=== PATIENT | female | born 1975 ===

== ENCOUNTER 2021-01-27 06:49 | Emergency (ER) | payer BC ==
[2021-01-27 07:45] LABS: Basophils # (Auto) 0.1 K/mm3 (0.0-0.1); Basophils % (Auto) 0.5 % (0.0-1.8); Eosinophils % (Auto) 0.2 % (0.0-4.3); Hematocrit 30.1 % (30.3-42.9); Hemoglobin 9.3 gm/dl (10.1-14.3); Lymphocytes # (Auto) 2.6 K/mm3 (1.2-5.4); Lymphocytes % (Auto) 21.7 % (13.4-35.0); Mean Corpuscular HGB Conc 31 % (30-34); Monocytes # (Auto) 0.9 K/mm3 (0.0-0.8); Monocytes % (Auto) 7.8 % (0.0-7.3); Platelet Count 404 K/mm3 (140-440); Red Blood Count 4.53 M/mm3 (3.65-5.03); Red Cell Distribution Width 18.8 % (13.2-15.2)
[2021-01-27 08:10] LABS: Alanine Aminotransferase 8 units/L (7-56); Albumin 4.2 g/dL (3.9-5); BUN/Creatinine Ratio 11; Blood Urea Nitrogen 10 mg/dL (7-17); Calcium 9.5 mg/dL (8.4-10.2); Hemolysis Index 3
[2021-01-27 08:14] LABS: Mean Corpuscular Volume 67 fl (79-97)
[2021-01-27] MEDS ORDERED: MORPHINE 2 MG/1 ML INJ IV ONE ×2 (08:18→09:14)
[2021-01-27] MEDS ORDERED: ONDANSETRON 4 MG/2 ML INJ IV ONE (08:18)
--- NOTE | 2021-01-27 08:48 | Emergency Department Report ---
ED Abdominal Pain HPI - General Chief Complaint: Abdominal Pain Stated Complaint: ABD PAIN/POST SURGERY Time Seen by Provider: 01/27/21 07:41 Source: patient, family Mode of arrival: Wheelchair Limitations: No Limitations - History of Present Illness Initial Comments: 45-year-old female, history of fibroids, presents to ED with abdominal pain and vomiting. Patient states she underwent uterine fibroid embolization [address] Larkin. Patient states since then she has been having lower abdominal pain, nausea and vomiting. States she is unable to keep anything down. She denies any fever. Patient states she was prescribed ibuprofen for pain but has been unable to take it due to her vomiting. MD Complaint: abdominal pain -: days(s) (3) Location: suprapubic Radiation: none Migration to: no migration Severity: moderate Severity scale (0 -10): 10 Quality: cramping Consistency: constant Improves With: nothing Worsens With: nothing Context: recent surgery/procedure Associated Symptoms: nausea, vomiting. denies: fever - Related Data Previous Rx's Medication Instructions Recorded Last Taken Type Ondansetron [Zofran Odt] 4 mg PO Q8HR PRN #20 tab.rapdis 01/27/21 Unknown Rx Sulfamethoxazole/Trimethoprim 1 each PO BID 3 Days #6 tablet 01/27/21 Unknown Rx [Bactrim DS TAB] traMADoL [Ultram] 50 mg PO Q6HR PRN #7 tablet 01/27/21 Unknown Rx Allergies Allergy/AdvReac Type Severity Reaction Status Date / Time No Known Allergies Allergy Verified 01/27/21 07:08 ED Review of Systems ROS: Stated complaint: ABD PAIN/POST SURGERY Other details as noted in HPI Comment: All other systems reviewed and negative Constitutional: denies: chills, fever Gastrointestinal: abdominal pain, nausea, vomiting ED Past Medical Hx - Past Medical History Previous Medical History?: No - Surgical History Additional Surgical History: FIBRIOD SURGERY - Social History Smoking Status: Never Smoker Substance Use Type: None - Medications Home Medications: Home Medications Medication Instructions Recorded Confirmed Last Taken Type Ondansetron [Zofran Odt] 4 mg PO Q8HR PRN #20 tab.rapdis 01/27/21 Unknown Rx Sulfamethoxazole/Trimethoprim 1 each PO BID 3 Days #6 tablet 01/27/21 Unknown Rx [Bactrim DS TAB] traMADoL [Ultram] 50 mg PO Q6HR PRN #7 tablet 01/27/21 Unknown Rx ED Physical Exam - General Limitations: No Limitations General appearance: alert, in no apparent distress - Head Head exam: Present: atraumatic, normocephalic - Eye Eye exam: Present: normal appearance, EOMI - ENT ENT exam: Present: mucous membranes moist - Neck Neck exam: Present: normal inspection - Respiratory Respiratory exam: Present: normal lung sounds bilaterally. Absent: respiratory distress - Cardiovascular Cardiovascular Exam: Present: regular rate, normal rhythm - GI/Abdominal GI/Abdominal exam: Present: soft, tenderness (Suprapubic). Absent: distended - Extremities Exam Extremities exam: Present: normal inspection - Neurological Exam Neurological exam: Present: alert, oriented X3 - Psychiatric Psychiatric exam: Present: normal affect, normal mood - Skin Skin exam: Present: warm, dry, intact, normal color ED Course Vital Signs 01/27/21 01/27/21 01/27/21 06:55 07:32 07:38 Temperature 97.3 F L Pulse Rate 89 62 Respiratory 18 15 Rate Blood Pressure 135/83 O2 Sat by Pulse 100 99 Oximetry 01/27/21 01/27/21 01/27/21 07:46 08:00 08:16 Temperature Pulse Rate 69 66 85 Respiratory 16 15 15 Rate Blood Pressure 160/83 142/79 160/83 O2 Sat by Pulse 100 100 99 Oximetry 01/27/21 01/27/21 01/27/21 08:30 08:46 09:00 Temperature Pulse Rate 78 72 75 Respiratory 11 L 21 15 Rate Blood Pressure 160/83 142/79 140/66 O2 Sat by Pulse 100 100 99 Oximetry 01/27/21 01/27/21 01/27/21 09:16 09:30 09:46 Temperature Pulse Rate 74 77 76 Respiratory 15 14 14 Rate Blood Pressure 140/66 140/66 140/66 O2 Sat by Pulse 100 98 100 Oximetry 01/27/21 01/27/21 01/27/21 10:00 10:16 10:30 Temperature Pulse Rate 76 76 80 Respiratory 15 13 12 Rate Blood Pressure 135/76 135/76 135/76 O2 Sat by Pulse Oximetry 01/27/21 01/27/21 10:46 11:00 Temperature Pulse Rate 76 74 Respiratory 18 14 Rate Blood Pressure 135/76 128/82 O2 Sat by Pulse Oximetry - Consultations Consultation #1: 01/27/21 08:[address] Larkin over the phone. Relayed exam findings, lab results, vital signs. Does not feel the patient requires any imaging at this time. Okay with discharge home if patient feels better after IV fluids, morphine, and Zofran. ED Medical Decision Making - Lab Data Result diagrams: 01/27/21 07:28 01/27/21 07:28 - Medical Decision Making Patient feeling much better following IV fluids, morphine, Toradol, Zofran. Vital signs are stable. UA shows evidence of mild UTI. She will be discharged home with antibiotics and additional medications. Outpatient follow-up advised, return precautions given. - Differential Diagnosis Postoperative pain, UTI Critical care attestation.: If time is entered above; I have spent that time in minutes in the direct care of this critically ill patient, excluding procedure time. ED Disposition Clinical Impression: Postoperative abdominal pain, UTI (urinary tract infection) Disposition: TO HOME OR SELFCARE Is pt being admited?: No Condition: Stable Instructions: Urinary Tract Infection, Adult, [id number], Abdominal Pain (ED) Prescriptions: Sulfamethoxazole/Trimethoprim [Bactrim DS TAB] 1 each PO BID 3 Days #6 tablet traMADoL [Ultram] 50 mg PO Q6HR PRN #7 tablet PRN Reason: Pain Ondansetron [Zofran Odt] 4 mg PO Q8HR PRN #20 tab.rapdis PRN Reason: Vomiting Referrals: PRIMARY CARE,MD [Primary Care Provider] - 3-5 Days Time of Disposition: 10:55
[2021-01-27] MEDS ORDERED: SODIUM CHLORIDE 0.9% 1000 ML 1,000 ML IV ONE (08:55)
[2021-01-27] MEDS ORDERED: KETOROLAC 30 MG/1 ML INJ IV ONE (09:14)
[2021-01-27 10:14] LABS: Bacteria,Urine 1+ /HPF (Negative); Bilirubin,Urine NEG (Negative); Blood,Urine LG (Negative); Color,Urine Straw (Yellow); Mucus,Urine FEW /HPF; Protein,Urine <15 mg/dL mg/dL (Negative); Urobilinogen,Urine < 2.0 mg/dL (<2.0)
[2021-01-27 11:29] VITALS: BP 128/82
== END 2021-01-27 11:06 | disposition home or self-care (01) ==
LOC: ED 06:49
DX: N39.0 Urinary tract infection, site not specified (principal); G89.18 Other acute postprocedural pain; Z98.890 Other specified postprocedural states; Z79.899 Other long term (current) drug therapy
CPT/HCPCS: 36415; 80053; 81001; 82962; 85025; 87086; 96361; 96374; 96375; 96376; 99283; J1885; J2270; J2405; J7030